=== PATIENT | male | born 1990 | race Caucasian/White ===

== ENCOUNTER → 2022-05-29 09:23 | Outpatient (CLI) | payer BC, SELFPAY ==
[2022-05-29 10:36] LABS: Influenza A - CEPHEID Flu A NEGATIVE (NEGATIVE); Influenza B - CEPHEID Flu B NEGATIVE (NEGATIVE)
[2022-05-29 10:47] LABS: COVID-19 CEPHEID PCR (VTM/NP) Negative (Negative)
== END ==
PROVIDERS: Visit Provider Physician Assistant
DX: G44.201 Tension-type headache, unspecified, intractable (principal); R50.9 Fever, unspecified; Z20.822 Contact with and (suspected) exposure to COVID-19
CPT/HCPCS: 0240U